=== PATIENT | female | born 1995 | race Caucasian/White ===

== ENCOUNTER → 2018-01-21 | Outpatient (REF) | payer OTHER, SELFPAY ==
[2018-01-21 23:12] LABS: CHLAMYDIA DNA AMPLIFICATION NEGATIVE (NEGATIVE); GC DNA AMPLIFICATION NEGATIVE (NEGATIVE)
== END ==
LOC: M LAB REF 10:05
DX: N76.0 Acute vaginitis (principal)
CPT/HCPCS: 87086

== ENCOUNTER → 2018-09-14 | Outpatient (CLI) | payer OTHER ==
--- NOTE | 2018-09-15 05:55 | REP ---
Clinical: Pelvic and perineal pain . Technique: Transabdominal pelvic ultrasound followed by transvaginal examination for better evaluation of the endometrium and adnexa with color Doppler evaluation of the ovaries. Findings: Bladder is unremarkable and measures 6.2 x 6.0 x 3.0 cm . Normal retroflexed uterus measures 6.2 x 2.9 x 3.1 cm . The endometrial complex measures 3.3 mm thickness. No discrete uterine or endometrial abnormalities are appreciated. Bilateral ovaries are normal in appearance and vascularity without evidence for torsion. Right ovary measures 2.6 x 1.2 x 1.8 cm ; R I = 0.47 . Left ovary measures 1.7 x 1.3 x 1.3 cm ; R I = 0.51 . No pelvic fluid or adnexal mass lesion . Impression: 1. Normal pelvic ultrasound Electronically Signed by Иван Thomas MD 09/15/2018 05:46 A
== END ==
LOC: M RAD 17:01
PROVIDERS: ATTEND Physician Assistant
DX: R10.2 Pelvic and perineal pain (principal)